=== PATIENT | female | born 1990 | race African-American/Black ===

== ENCOUNTER 2016-06-24 20:25 | Emergency (ER) | payer SELFPAY ==
[~2016-06-24] VITALS: Ht 162.6 cm; Wt 54.4 kg
--- NOTE | 2016-06-24 21:01 | PHYS DOC ---
Past Medical History Past Medical History: No Pertinent History Past Surgical History: No Surgical History Alcohol Use: None Drug Use: None Adult General Chief Complaint Chief Complaint: VAGINAL PROBLEM HPI HPI Patient is a 25 year old female who presents with pelvic discomfort 07/06, abnormal vaginal discharge, and concern for an STI ofr 2-3 days. Reports history of Chlamydia. LMP 06/02/15, A0. Denies abdominal pain, n/v, fever, urinary symptoms. Review of Systems Review of Systems Constitutional: Denies fever or chills Eyes: Denies change in visual acuity, redness, or eye pain HENT: Denies nasal congestion or sore throat Respiratory: Denies cough or shortness of breath Cardiovascular: No additional information not addressed in HPI GI: Denies abdominal pain, nausea, vomiting, bloody stools or diarrhea : Denies dysuria or hematuria. Large amount of white discharge Musculoskeletal: Denies back pain or joint pain Integument: Denies rash or skin lesions Neurologic: Denies headache, focal weakness or sensory changes Endocrine: Denies polyuria or polydipsia [] Current Medications Current Medications Current Medications Medications (Trade) Dose Ordered Sig/Em Start Time Stop Time Status Last Admin Dose Admin Azithromycin (Zithromax) 1,000 mg 1X ONCE 06/24/16 22:30 06/24/16 22:31 DC 06/24/16 22:40 1,000 MG Ceftriaxone Sodium (Rocephin Im) 250 mg 1X ONCE 06/24/16 22:30 06/24/16 22:31 DC 06/24/16 22:40 250 MG Metronidazole (Flagyl) 2,000 mg 1X ONCE 06/24/16 22:30 06/24/16 22:31 DC 06/24/16 22:40 2,000 MG Ondansetron HCl (Zofran Odt) 4 mg 1X ONCE 06/24/16 22:30 06/24/16 22:31 DC 06/24/16 22:40 4 MG Allergies Allergies Allergies Coded Allergies Type Severity Reaction Last Updated Verified No Known Drug Allergies 10/09/13 No Physical Exam Physical Exam Constitutional: Well developed, well nourished, no acute distress, non-toxic appearance. HENT: Normocephalic, atraumatic, bilateral external ears normal, oropharynx moist, no oral exudates, nose normal. Eyes: PERRLA, EOMI, conjunctiva normal, no discharge. Neck: Normal range of motion, no tenderness, supple, no stridor. Cardiovascular:Heart rate regular rhythm, no murmur Lungs & Thorax: Bilateral breath sounds clear to auscultation Abdomen: Bowel sounds normal, soft, no tenderness, no masses, no pulsatile masses. Vagina: No external lesions, mild erythema of vulva present. Moderate amount of yellow discharge present. No CMT or erythema present Skin: Warm, dry, no erythema, no rash. Back: No tenderness, no CVA tenderness. Extremities: No tenderness, no cyanosis, no clubbing, ROM intact, no edema. [] Neurologic: Alert and oriented X 3, normal motor function, normal sensory function, no focal deficits noted. [] Psychologic: Affect normal, judgement normal, mood normal. [] Current Patient Data Vital Signs Vital Signs Date Time Temp Pulse Resp B/P Pulse Ox O2 Delivery O2 Flow Rate FiO2 06/24/16 22:15 80 18 117/81 98 Room Air 06/24/16 20:44 98.3 98.3 Lab Values Laboratory Tests Test 06/24/16 20:36 Urine Collection Type Unknown Urine Color Yellow Urine Clarity Cloudy Urine pH 7.5 Urine Specific [place] 1.020 Urine Protein Negativemg/dL (NEG-TRACE) Urine Glucose (UA) Negativemg/dL (NEG) Urine Ketones (Stick) Negativemg/dL (NEG) Urine Blood Negative (NEG) Urine Nitrite Negative (NEG) Urine Bilirubin Negative (NEG) Urine Urobilinogen Dipstick 1.0mg/dL (0.2 mg/dL) Urine Leukocyte Esterase Large (NEG) Urine RBC 0/HPF (0-2) Urine WBC 1-4/HPF (0-4) Urine Squamous Epithelial Cells Many/LPF Urine Bacteria Few/HPF (0-FEW) Urine Mucus Slight/LPF Urine Trichomonas Present Microbiology 06/24/16 Wet Prep - Final, Complete Microbiology 06/24/16 Wet Prep - Final, Complete EKG EKG [] Radiology/Procedures Radiology/Procedures [] Impressions: 1. Trichomoniasis 2. bacterial vaginosis Course & Med Decision Making Course & Med Decision Making Pertinent Labs and Imaging studies reviewed. (See chart for details) [] Dragon Disclaimer Dragon Disclaimer This electronic medical record was generated, in whole or in part, using a voice recognition dictation system. Departure Departure Impression: Primary Impression: Trichomoniasis Additional Impression: Bacterial vaginitis Disposition: HOME, SELF-CARE Condition: STABLE Referrals: NO PCP (PCP) Patient Instructions: Bacterial Vaginosis, [id number], Cervicitis, Easy-to- Read, Trichomoniasis Additional Instructions: Practice safe sex. Follow up at health Department for further testing [phone]. Return if any problems or concerns Problem Qualifiers PUMA JADE APRN Jun 24, 2016 21:01
[2016-06-24 21:03] LABS: BILIRUBIN,URINE NEGATIVE (NEG); GLUCOSE,URINE NEGATIVE (NEG); NITRITE,URINE NEGATIVE (NEG); PH,URINE 7.5; PROTEIN,URINE NEGATIVE (NEG-TRACE)
[2016-06-24 21:17] LABS: BACTERIA,URINE FEW /HPF (0-FEW); RBC,URINE 0 /HPF (0-2); SQUAMOUS EPITHELIAL CELL,UR MANY /LPF; TRICHOMONAS,URINE PRESENT
[2016-06-24 22:15] VITALS: BP 117/81
[2016-06-24] MEDS ORDERED: CEFTRIAXONE IM 250 MG VIAL. IM ONE (22:30)
[2016-06-24] MEDS ORDERED: METRONIDAZOLE 500 MG TABLET. PO ONE (22:30)
[2016-06-24] MEDS ORDERED: AZITHROMYCIN 250 MG TABLET PO ONE (22:30)
[2016-06-24] MEDS ORDERED: ONDANSETRON ODT 4 MG TAB.RAPDIS PO ONE (22:30)
== END 2016-06-24 23:00 | disposition home or self-care (01) ==
LOC: ER 20:25
DX: N76.0 Acute vaginitis (principal); A59.9 Trichomoniasis, unspecified; B96.89 Other specified bacterial agents as the cause of diseases classified elsewhere
CPT/HCPCS: 81001; 81025; 87086; 87491; 87591; 96372; 99284; J0696; Q0111; Q0144; Q0162

== ENCOUNTER 2017-04-11 23:35 | Emergency (ER) | payer OTHER ==
[~2017-04-11] VITALS: Ht 162.6 cm; Wt 54.4 kg
[2017-04-11 23:35] VITALS: BP 111/68
[2017-04-11] MEDS ORDERED: CYCL10TA2 PO (23:53)
[2017-04-11] MEDS ORDERED: NAPR-683 PO (23:53)
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
[2017-04-12] MEDS ORDERED: KETOROLAC 60 MG/2 ML INJ. IM ONE (00:15)
== END 2017-04-12 00:13 | disposition home or self-care (01) ==
LOC: ER 23:35
DX: S16.1XXA Strain of muscle, fascia and tendon at neck level, initial encounter (principal); S29.012A Strain of muscle and tendon of back wall of thorax, initial encounter; R51 Headache; V43.52XA Car driver injured in collision with other type car in traffic accident, initial encounter; Y93.I9 Activity, other involving external motion; Y92.410 Unspecified street and highway as the place of occurrence of the external cause; Y99.8 Other external cause status
CPT/HCPCS: 96372; 99283; J1885

== ENCOUNTER 2017-06-03 18:44 | Emergency (ER) | payer SELFPAY, OTHER ==
[2017-06-03] MEDS: TETRACAINE 0.5% OPHTH SOLUTION 4ML BOTTLE. OS ×2 (19:46)
[2017-06-03] MEDS: FLUORESCEIN OPHTH TEST STRIP. OS ×2 (19:46)
== END 2017-06-03 19:49 | disposition home or self-care (01) ==
LOC: ER 18:44
DX: H10.212 Acute toxic conjunctivitis, left eye (principal)
CPT/HCPCS: 99283; 99284